=== PATIENT | male | born 1990 | race Caucasian/White ===

== ENCOUNTER 2019-01-22 20:53 | Emergency (ER) | payer MEDICAID ==
[2019-01-22 23:12] VITALS: BP 120/81
== END 2019-01-22 23:12 | disposition home or self-care (01) ==
LOC: ED 20:53
DX: S61.213A Laceration without foreign body of left middle finger without damage to nail, initial encounter (principal); W45.8XXA Other foreign body or object entering through skin, initial encounter; Y93.89 Activity, other specified; Y92.810 Car as the place of occurrence of the external cause; Y99.8 Other external cause status
CPT/HCPCS: 90715; J2001